=== PATIENT | female | born 1980 | race African-American/Black ===

== ENCOUNTER 2019-08-20 14:12 | Emergency (ER) | payer OTHER ==
[~2019-08-20] VITALS: Ht 167.6 cm; Wt 78.0 kg
[2019-08-20 20:13] LABS: HEMATOCRIT. 27.9 % (36.0-48.0); HEMOGLOBIN. 8.5 g/dL (12.0-16.0); MEAN CORPUSCULAR HEMOGLOBIN 19.8 pg (28.0-32.0); MEAN CORPUSCULAR VOLUME 64.8 fL (81.0-99.0); MEAN PLATELET VOLUME 6.9 fl (7.4-10.4); PLATELET 397 x1000/uL (130-400); RED CELL DISTRIBUTION WIDTH 22.2 % (11.6-14.6)
[2019-08-20 20:16] LABS: CHLORIDE 108 mEq/L (98-107)
[2019-08-20 20:39] LABS: B-HCG QUANTITATIVE 80332 mIU/mL (<3)
[2019-08-20 21:39] LABS: PLATELET ESTIMATE NORMAL
[2019-08-20 23:14] LABS: CLARITY URINE TURBID (CLEAR); COLOR URINE RED (YELLOW); KETONES URINE NEGATIVE (NEGATIVE); LEUKOCYTE ESTERASE URINE 1+ (NEGATIVE); NITRITE URINE POSITIVE (NEGATIVE); OCCULT BLOOD URINE 3+ (NEGATIVE); PROTEIN URINE 2+ (NEGATIVE); SPECIFIC GRAVITY URINE 1.027 (1.005-1.030)
[2019-08-20 23:55] VITALS: BP 106/59
== END 2019-08-20 23:57 | disposition home or self-care (01) ==
LOC: ER 14:12
DX: R82.71 Bacteriuria (principal); F17.290 Nicotine dependence, other tobacco product, uncomplicated
CPT/HCPCS: 36415; 76801; 80053; 81003; 84702; 85025; 86850; 86900; 99285

== ENCOUNTER 2020-02-17 00:30 | Inpatient (IN) | payer MEDICAID, OTHER ==
[~2020-02-17] VITALS: Ht 167.6 cm; Wt 88.5 kg
[2020-02-17] MEDS ORDERED: DEXT 5%/LR + PITOCIN 20UNITS/L 1,000 ML IV SCH ×2 (01:14→12:52)
[2020-02-17] MEDS ORDERED: NALOXONE HCL 0.4 MG/ML 1ML VIAL IM PRN (01:15)
[2020-02-17] MEDS ORDERED: BUTORPHANOL TARTRATE 2 MG/ML VIAL IV PRN (01:15)
[2020-02-17] MEDS ORDERED: CARBOPROST TROMETHAMINE 250 MCG/ML AMPUL IM PRN (01:15)
[2020-02-17] MEDS ORDERED: METHYLERGONOVINE MALEATE 0.2 MG/ML IM PRN (01:15)
[2020-02-17] MEDS ORDERED: LIDOCAINE HCL 1% 20ML VIAL (Pyxis) INJ INFIL SCH (01:15)
[2020-02-17] MEDS ORDERED: PENICILLIN G POTASSIUM 5 MMU in DEXT 5% WATER 100 ML IV SCH (02:00)
[2020-02-17 02:15] LABS: HEMATOCRIT. 25.7 % (36.0-48.0); HEMOGLOBIN. 7.7 g/dL (12.0-16.0); MEAN CORPUSCULAR HEMOGLOBIN 18.3 pg (28.0-32.0); MEAN CORPUSCULAR VOLUME 61.4 fL (81.0-99.0); MEAN PLATELET VOLUME 8.3 fl (7.4-10.4); PLATELET 333 x1000/uL (130-400); RED BLOOD CELL COUNT 4.18 mill/uL (4.2-5.4); RED CELL DISTRIBUTION WIDTH 20.5 % (11.6-14.6)
[2020-02-17 02:16] LABS: CLARITY URINE CLOUDY (CLEAR); COLOR URINE YELLOW (YELLOW); KETONES URINE NEGATIVE (NEGATIVE); LEUKOCYTE ESTERASE URINE 2+ (NEGATIVE); NITRITE URINE NEGATIVE (NEGATIVE); OCCULT BLOOD URINE 3+ (NEGATIVE); PROTEIN URINE 1+ (NEGATIVE); SPECIFIC GRAVITY URINE 1.012 (1.005-1.030)
[2020-02-17 02:25] LABS: *BARBITURATES SCREEN URINE NEGATIVE (NEGATIVE)
[2020-02-17 02:26] LABS: *AMPHETAMINES SCREEN URINE NEGATIVE (NEGATIVE); *BENZODIAZEPINES SCREEN URINE NEGATIVE (NEGATIVE); *COCAINE SCREEN URINE NEGATIVE (NEGATIVE); METHADONE URINE SCREEN NEGATIVE (NEGATIVE); OPIATES URINE SCREEN NEGATIVE (NEGATIVE); PHENCYCLIDINE URINE SCREEN NEGATIVE (NEGATIVE)
[2020-02-17 02:27] LABS: CANNABINOID URINE SCREEN NEGATIVE (NEGATIVE)
[2020-02-17 02:33] LABS: INR 0.9; PARTIAL THROMBOPLASTIN TIME 25.3 sec (23.4-31.0); PROTHROMBIN TIME 9.9 sec (9.6-11.0)
[2020-02-17 02:36] LABS: HEPATITIS B SURFACE ANTIGEN NEGATIVE
[2020-02-17] MEDS ORDERED: PNV1TABL76 MT (03:19)
[2020-02-17] MEDS ORDERED: ROPIVACAINE HCL/PF EPIDURAL 200 ML EPI ONE (04:00)
[2020-02-17] MEDS ORDERED: DIPHENHYDRAMINE 50MG/ML VIAL IV PRN (04:15)
[2020-02-17] MEDS ORDERED: ROPIVACAINE HCL/PF EPIDURAL 200 ML EPI SCH (04:15)
[2020-02-17] MEDS ORDERED: ONDANSETRON HCL 4MG/2ML INJ IV PRN (04:15)
[2020-02-17] MEDS ORDERED: METOCLOPRAMIDE HCL 10MG/2ML VIAL IV PRN (04:15)
[2020-02-17 04:27] LABS: NUCLEATED RED BLOOD CELLS 2 /100 WBC; PLATELET ESTIMATE NORMAL
[2020-02-17] MEDS: PENICILLIN G POTASSIUM 2.5 MMU in DEXTROSE 5% WATER 50 ML IV SCH ×2 (06:08→10:07)
[2020-02-17] MEDS: LACTATED RINGERS 1,000 ML IV SCH ×2 (06:09→11:24)
[2020-02-17] MEDS ORDERED: FENTANYL CITRATE/PF 50MCG/ML 2ML VIAL ONE ×2 (09:40→10:51)
[2020-02-17] MEDS ORDERED: BUPIVACAINE HCL/PF 0.25% (2.5MG/ML) 10ML ONE (09:40)
[2020-02-17] MEDS ORDERED: RHO(D) IMMUNE GLOBULIN 300 MCG/SYR IM PRN (13:00)
[2020-02-17] MEDS ORDERED: IBUPROFEN 800MG TABLET PO PRN (13:00)
[2020-02-17] MEDS ORDERED: LANOLIN OINT 7GM TUBE TOP PRN (13:00)
[2020-02-17] MEDS ORDERED: IBUPROFEN 400MG TABLET PO PRN (13:00)
[2020-02-17] MEDS ORDERED: MISOPROSTOL 200MCG TABLET PO SCH (13:00)
[2020-02-17 14:30] VITALS: BP 111/66
[2020-02-17 15:30] VITALS: BP 106/64
[2020-02-17 17:55] VITALS: BP 109/63
[2020-02-17] MEDS: ACETAMINOPHEN 325MG TABLET PO PRN ×2 (18:37→21:10)
[2020-02-17 19:30] VITALS: BP 112/65
[2020-02-18 04:00] VITALS: BP 110/68
[2020-02-18 07:14] LABS: BASOPHILS % 0.6 % (0.0-2.0); EOSINOPHILS % 1.2 % (0.0-5.0); HEMATOCRIT. 21.7 % (36.0-48.0); LYMPHOCYTES % 22.1 % (20.0-50.0); MEAN CORPUSCULAR HEMOGLOBIN 18.3 pg (28.0-32.0); MEAN CORPUSCULAR VOLUME 61.8 fL (81.0-99.0); MONOCYTES % 6.5 % (2.0-8.0); NEUTROPHILS % 69.6 % (40.0-76.0); PLATELET 288 x1000/uL (130-400); RED BLOOD CELL COUNT 3.51 mill/uL (4.2-5.4); RED CELL DISTRIBUTION WIDTH 20.8 % (11.6-14.6)
[2020-02-18 08:15] LABS: HEMOGLOBIN. 6.4 g/dL (12.0-16.0)
[2020-02-18 08:30] VITALS: BP 119/56
[2020-02-18] MEDS ORDERED: PRENATAL VIT/FE FUMARATE/FA TABLET PO SCH (09:00)
[2020-02-18 15:17] VITALS: BP 112/70
[2020-02-18] MEDS: ACETAMINOPHEN 325MG TABLET PO PRN (15:28)
[2020-02-18 19:30] VITALS: BP 110/78
[2020-02-19 04:00] VITALS: BP 101/59
[2020-02-19 08:15] VITALS: BP 91/57
[2020-02-19] MEDS: ACETAMINOPHEN 325MG TABLET PO PRN (08:40)
[2020-02-19 11:00] VITALS: BP 91/57
== END 2020-02-19 13:30 | disposition home or self-care (01) | DRG 560 ==
LOC: 8 EST LDRP 00:30 → 8EST 14:11
PROVIDERS: ADMIT Specialist; ATTEND Specialist
PROC: 10E0XZZ Delivery of Products of Conception, External Approach (ICD-10-PCS; principal; 2020-02-17)
PROC: 3E0R3BZ Introduction of Anesthetic Agent into Spinal Canal, Percutaneous Approach (ICD-10-PCS; 2020-02-17)
PROC: 00HU33Z Insertion of Infusion Device into Spinal Canal, Percutaneous Approach (ICD-10-PCS; 2020-02-17)
DX: O69.81X0 Labor and delivery complicated by cord around neck, without compression, not applicable or unspecified (principal); O99.52 Diseases of the respiratory system complicating childbirth; O98.32 Other infections with a predominantly sexual mode of transmission complicating childbirth; O99.334 Smoking (tobacco) complicating childbirth; O99.02 Anemia complicating childbirth; O48.0 Post-term pregnancy; D62 Acute posthemorrhagic anemia; J45.909 Unspecified asthma, uncomplicated; A63.0 Anogenital (venereal) warts; F17.200 Nicotine dependence, unspecified, uncomplicated; Z83.3 Family history of diabetes mellitus; Z88.8 Allergy status to other drugs, medicaments and biological substances; Z3A.38 38 weeks gestation of pregnancy; Z37.0 Single live birth
CPT/HCPCS: 36415; 80305; 81003; 85025; 86592; 86703; 86762; 86850; 86900; 86920; 87340; 99281; J0595; J2540; J2590; J2795; J3010; J3490; J7060; J7120

== ENCOUNTER 2022-08-27 12:14 | Emergency (ER) | payer MEDICAID, OTHER ==
[~2022-08-27] VITALS: Ht 167.6 cm; Wt 71.0 kg
[~2022-08-27 12:14] MED LIST: PNV1TABL76 MT
[2022-08-27 12:21] VITALS: BP 106/79
[2022-08-27] MEDS ORDERED: PREDNISONE 20MG TABLET PO STA (12:40)
[2022-08-27] MEDS ORDERED: IPRATROPIUM BROMIDE (0.02%) 0.5MG/2.5ML NEB HHN STA (12:40)
[2022-08-27] MEDS ORDERED: ALBUTEROL (0.083%) 2.5MG/3ML NEB HHN STA (12:40)
[2022-08-27] MEDS ORDERED: AZITHROMYCIN 500 MG TABLET PO NR (14:00)
[2022-08-27] MEDS ORDERED: AZIT250T12 MT (14:39)
[2022-08-27] MEDS ORDERED: ALBU90AE INH (14:39)
[2022-08-27] MEDS ORDERED: P20 MT (14:40)
[2022-08-27] MEDS ORDERED: PREDNISONE 20MG TABLET PO NR (14:45)
== END 2022-08-27 15:13 | disposition home or self-care (01) ==
LOC: ER 12:33
DX: J18.9 Pneumonia, unspecified organism (principal); J45.901 Unspecified asthma with (acute) exacerbation; H92.01 Otalgia, right ear; F17.210 Nicotine dependence, cigarettes, uncomplicated; Z71.6 Tobacco abuse counseling; Z88.8 Allergy status to other drugs, medicaments and biological substances; Z79.51 Long term (current) use of inhaled steroids; Z79.899 Other long term (current) drug therapy
CPT/HCPCS: 71045; 94644; 99291; 99406; J7512; Z7610